=== PATIENT | male | born 1955 | race American Indian/Alaskan Native ===

== ENCOUNTER 2021-10-05 10:00 | Emergency (ER) | payer MEDICARE ==
--- NOTE | 2021-10-05 11:20 | Emergency Department Report ---
ED General Adult HPI - General Chief complaint: Urogenital-Male Stated complaint: I cannot urinate Time Seen by Provider: 10/05/21 10:28 Source: patient, RN notes reviewed Mode of arrival: Ambulatory Limitations: No Limitations - History of Present Illness Initial comments: Private neurologist: Dr. Yury Valentin; [facility] This patient is a pleasant 66-year-old gentleman, who presents to the ER today with a complaint of urinary retention. He reports a history of BPH. He believes he also has a history of hypertension. His symptoms are much improved with placement of a Begum catheter. He denies testicular pain, dyschezia, rectal pain, and phallus pain. He did present with suprapubic distention and fullness, and severe discomfort, i nability to urinate. No other complaints at this time. He called up his private urologist, and was informed that he would not be able to get an appointment for about 2 weeks. He therefore presented to the emergency room. -: hour(s) Location: abdomen Consistency: constant Improves with: other (Placement of a Begum catheter) Worsens with: other (Attempting to urinate) - Related Data Previous Rx's Medication Instructions Recorded Last Taken Type Tamsulosin [Flomax] 0.4 mg PO QHS #30 cap 10/05/21 Unknown Rx Allergies Allergy/AdvReac Type Severity Reaction Status Date / Time Penicillins Allergy Itching Verified 10/05/21 10:11 ED Review of Systems ROS: Stated complaint: BLADDER PAINFUL/HURT TO SIT Other details as noted in HPI Constitutional: denies: fever Eyes: denies: eye discharge Respiratory: denies: cough Cardiovascular: denies: chest pain Gastrointestinal: abdominal pain. denies: vomiting, diarrhea Genitourinary: as per HPI, other (Suprapubic fullness and inability to urine). denies: testicular pain, testicular mass Neurological: denies: weakness Psychiatric: anxiety ED Past Medical Hx - Medications Home Medications: Home Medications Medication Instructions Recorded Confirmed Last Taken Type Tamsulosin [Flomax] 0.4 mg PO QHS #30 cap 10/05/21 Unknown Rx ED Physical Exam - General Limitations: No Limitations General appearance: alert, anxious, in distress, obese - Head Head exam: Present: atraumatic, normocephalic - Eye Eye exam: Present: normal appearance, EOMI - ENT ENT exam: Present: normal exam, normal orophraynx, mucous membranes moist, normal external ear exam - Neck Neck exam: Present: normal inspection, full ROM. Absent: tenderness, meningismus - Respiratory Respiratory exam: Present: normal lung sounds bilaterally. Absent: respiratory distress, wheezes, rales, rhonchi, stridor, decreased breath sounds - Cardiovascular Cardiovascular Exam: Present: normal rhythm, tachycardia, normal heart sounds. Absent: bradycardia, irregular rhythm, systolic murmur, diastolic murmur, rubs, gallop - GI/Abdominal GI/Abdominal exam: Present: soft, distended, tenderness, other (There is suprapubic fullness and distention. Tenderness and distention resolved after placement of Begum catheter). Absent: guarding, rebound, rigid, pulsatile mass - Rectal Rectal exam: Present: deferred - Extremities Exam Extremities exam: Present: normal inspection, full ROM, other (2+ pulses noted in the bilateral upper and lower extremities. There is no palpable cord. negative Homans sign. Muscular compartments are soft. The pelvis is stable.). Absent: pedal edema, calf tenderness - Back Exam Back exam: Present: normal inspection, full ROM. Absent: tenderness, CVA tenderness (R), CVA tenderness (L), paraspinal tenderness, vertebral tenderness - Neurological Exam Neurological exam: Present: alert, oriented X3, normal gait, other (No facial droop. Tongue midline. Extraocular movements intact bilaterally. Facial sensation intact to light touch in V1, V2, V3 distribution bilaterally. 5 and a 5 strength in 4 extremities. Sensation intact to light touch in 4 extremities.). Absent: motor sensory deficit - Psychiatric Psychiatric exam: Present: anxious - Skin Skin exam: Present: warm, dry, intact, normal color. Absent: rash ED Course Vital Signs 10/05/21 10/05/21 10/05/21 10:12 10:52 12:11 Temperature 98.0 F Pulse Rate 110 H 89 Respiratory 20 20 Rate Blood Pressure 158/113 Blood Pressure 147/95 [Right] O2 Sat by Pulse 99 100 98 Oximetry - Reevaluation(s) Reevaluation #1: 10/05/21 12:07 Differential diagnosis, including but not limited to: Urinary retention, BPH, urinary tract infection Assessment and plan: 66-year-old gentleman, with resolved urinary retention, much improved after placement of a Begum catheter. Explained natural history of urinary retention to this patient, and need for discharge with Begum catheter, to leg bag, for outpatient trial of void. As a courtesy, I reached out to his private urologist, I discussed the case with Giselle, covering physician economic research assistant. She has taken the patient's information, and articulated to me that this patient will be contacted with an appointment from the office to follow-up in the next 1 to 2 weeks. I also discussed the natural history of urinary retention with patient, need to discharge with Begum catheter to leg bag, and recommendations to follow-up with urology for outpatient trial of void in 1 to 2 weeks. His urologist does recommend initiation of Flomax. He has a known history of BPH. Return precautions reviewed. All questions answered. 10/05/21 12:40 Tachycardia improved. Feels much improved. Begum catheter to leg bag. UA not consistent with UTI. Discharged with outpatient follow-up. ED Medical Decision Making - Lab Data Vital Signs 10/05/21 10/05/21 10:12 10:52 Temperature 98.0 F Pulse Rate 110 H Respiratory 20 Rate Blood Pressure 158/113 O2 Sat by Pulse 99 100 Oximetry Lab Results 10/05/21 Range/Units 11:23 Urine Color Straw (Yellow) Urine Turbidity Clear (Clear) Urine pH 6.0 (5.0-7.0) Ur Specific [place] 1.008 (1.003-1.030) Urine Protein <15 mg/dl (Negative) mg/dL Urine Glucose (UA) Neg (Negative) mg/dL Urine Ketones Neg (Negative) mg/dL Urine Blood Mod (Negative) Urine Nitrite Neg (Negative) Urine Bilirubin Neg (Negative) Urine Urobilinogen < 2.0 (<2.0) mg/dL Ur Leukocyte Esterase Neg (Negative) Urine WBC (Auto) 2.0 (0.0-6.0) /HPF Urine RBC (Auto) 41.0 (0.0-6.0) /HPF Urine Mucus Few /HPF Vital Signs 10/05/21 10/05/21 10/05/21 10:12 10:52 12:11 Temperature 98.0 F Pulse Rate 110 H 89 Respiratory 20 20 Rate Blood Pressure 158/113 Blood Pressure 147/95 [Right] O2 Sat by Pulse 99 100 98 Oximetry Critical care attestation.: If time is entered above; I have spent that time in minutes in the direct care of this critically ill patient, excluding procedure time. ED Disposition Clinical Impression: Urinary retention Disposition: 01 HOME / SELF CARE / HOMELESS Is pt being admited?: No Does the pt Need Aspirin: No Condition: Stable Instructions: Acute Urinary Retention, Male, [id number] Additional Instructions: Patient presented to the emergency room today and acute urinary retention, likely secondary to enlarged prostate gland. Recommend that patient keep the Begum catheter in bladder, attached to leg bag, and follow-up with your urologist in 1 to 2 weeks for repeat checkup and evaluation. The emergency room contacted your private urologist, and the urolog y group informed the emergency room that the patient should be contacted with an appointment to follow-up within the next 1 to 2 weeks. However, we do recommend that the patient also contact his urology office independently, to confirm outpatient follow-up appointment. Alternatively, the patient may follow-up with outpatient urology within the next 1 to 2 weeks, such as [facility]bi. Please continue current outpatient medications. [facility] Cultures were sent today, and results will be available in the next 3 to 5 days. Please have your primary care doctor contact the medical record department to obtain culture results. Flomax medication is recommended by your urologist to facilitate urination. This medication might cause dizziness and lightheadedness, so take it at night, before going to bed. Please return to the emergency room right away with new pain, worsened pain, migration of pain, projectile vomiting, change in mental status, confusion, inability tolerate liquid feeds, new, worsened or different symptoms not present on the initial emergency room evaluation Prescriptions: Tamsulosin [Flomax] 0.4 mg PO QHS #30 cap Referrals: KEIKO ACKERMAN [Provider Group] - 7-10 days Forms: Work/School Release Form(ED)
[2021-10-05 12:06] LABS: Bilirubin,Urine NEG (Negative); Blood,Urine MOD (Negative); Color,Urine Straw (Yellow); Mucus,Urine FEW /HPF; Protein,Urine <15 mg/dL mg/dL (Negative); Urobilinogen,Urine < 2.0 mg/dL (<2.0)
[2021-10-05 12:12] VITALS: BP 147/95
== END 2021-10-05 12:53 | disposition home or self-care (01) ==
LOC: ED 10:00
DX: R33.9 Retention of urine, unspecified (principal); Z88.0 Allergy status to penicillin; Z79.899 Other long term (current) drug therapy
CPT/HCPCS: 51702; 81001; 87086; 99283

== ENCOUNTER 2021-10-06 09:24 | Emergency (ER) | payer MEDICARE ==
[2021-10-06 10:20] VITALS: BP 138/88
[2021-10-06] MEDS ORDERED: WATER FOR IRRIG STERILE 250 ML BOTTLE IR ONE (13:12)
[2021-10-06] MEDS ORDERED: SODIUM CHLORIDE IRRI 500 ML 500 ML IR ONE (13:13)
[2021-10-06] MEDS ORDERED: SODIUM CHLORIDE 0.9% IRR 500 ML BOTTLE IR ONE (13:35)
--- NOTE | 2021-10-06 14:11 | Emergency Department Report ---
ED Male HPI - General Chief complaint: Urogenital-Male Stated complaint: CATHETER BLOCKAGE Time Seen by Provider: 10/06/21 10:54 Source: patient Mode of arrival: Ambulatory Limitations: No Limitations - History of Present Illness Initial comments: 66-year-old male with a past medical history of BPH, hypertension, elevated cholesterol presents to the hospital complaining of urine leaking around his Prather catheter and not entering the bag. Patient was here yesterday with acute urinary retention and had a Prather catheter placed for the first time. Patient also complains of stinging pain at the urethral meatus and irritation secondary to catheter. Patient currently denies fever, nausea, vomiting, or suprapubic abdominal pain. Patient does have a primary urologist with scheduled follow-up - Related Data Previous Rx's Medication Instructions Recorded Last Taken Type Tamsulosin [Flomax] 0.4 mg PO QHS #30 cap 10/05/21 Unknown Rx Allergies Allergy/AdvReac Type Severity Reaction Status Date / Time Penicillins Allergy Itching Verified 10/05/21 10:11 ED Review of Systems ROS: Stated complaint: CATHETER BLOCKAGE Other details as noted in HPI Comment: All other systems reviewed and negative ED Past Medical Hx - Past Medical History Hx Hypertension: Yes Additional medical history: elevated cholesterol - Surgical History Past Surgical History?: Yes Additional Surgical History: prostrate biopsy - Social History Smoking Status: Never Smoker Substance Use Type: None - Medications Home Medications: Home Medications Medication Instructions Recorded Confirmed Last Taken Type Tamsulosin [Flomax] 0.4 mg PO QHS #30 cap 10/05/21 Unknown Rx ED Physical Exam - General Limitations: No Limitations - Other Other exam information: General: No acute distress Head: Atraumatic Eyes: normal appearance ENT: Moist mucous membranes Neck: Normal appearance, no midline tenderness Chest: Clear to auscultation bilaterally CV: Regular rate and rhythm Abdomen: Soft, normal bowel sounds, nontender, nondistended, no rebound or guarding Prather catheter, mild blood at the meatus with dried blood on Prather. No gross hematuria. Clear urine in bag Back: Normal inspection Extremity: Normal inspection, full range of motion Neuro: Alert O x 3, no facial asymmetry, speech clear, no gross motor sensory deficit Psych: Appropriate behavior Skin: No rash ED Course Vital Signs 10/06/21 10:19 Temperature 98.4 F Pulse Rate 100 H Respiratory 18 Rate Blood Pressure 138/88 [Right] O2 Sat by Pulse 98 Oximetry - Reevaluation(s) Reevaluation #1: 10/06/21 14:06 hr 96 - Procedure Description Procedures done: Bedside ultrasound performed and did not show signs of urinary retention. Prather catheter balloon noted to be inflated in a nondistended bladder. Prather catheter was detached from bag and flushed with sterile normal saline. Saline advanced without difficulty and I was able to aspirate normal saline followed by patient relaxing and allowing saline to exit urine catheter. New leg bag was placed and patient was provided oral hydration. Patient was observed and had clear urine output continue Prather catheter without discomfort. No suprapubic distention or tenderness noted. Prather catheter adherent dressing was repositioned more proximal and medially so that it would cause less pulling and irritation at the urethral meatus. ED Medical Decision Making - Medical Decision Making prather obstruction with recent history of acute urinary retention secondary to BPH Prather catheter flush with improvement in obstruction Urine output noted in the bag prior to discharge Patient denied suprapubic abdominal pain or signs of urinary retention Patient is afebrile Patient has a appointment scheduled with his urologist for follow-up and was prescribed Flomax during ed visit yesterday Critical Care Time: No Critical care attestation.: If time is entered above; I have spent that time in minutes in the direct care of this critically ill patient, excluding procedure time. ED Disposition Clinical Impression: Obstructed Prather catheter Disposition: HOME / SELF CARE / HOMELESS Is pt being admited?: No Does the pt Need Aspirin: No Condition: Stable Instructions: Indwelling Urinary Catheter Care, Adult, [id number] Additional Instructions: Follow-up with your urologist. Return if symptoms worsen as indicated by your discharge instructions. Referrals: your, urologist [Other] - 3-5 Days Time of Disposition: 14:05
== END 2021-10-06 14:21 | disposition home or self-care (01) ==
LOC: ED 09:24
DX: Z46.6 Encounter for fitting and adjustment of urinary device (principal); I10 Essential (primary) hypertension
CPT/HCPCS: 99282; 99283

== ENCOUNTER 2022-02-14 22:17 | Emergency (ER) | payer MEDICARE ==
--- NOTE | 2022-02-15 00:45 | Emergency Department Report ---
ED Male HPI - General Chief complaint: Urogenital-Male Stated complaint: UNABLE TO URINATE Time Seen by Provider: 02/15/22 00:24 Source: patient Mode of arrival: Ambulatory Limitations: No Limitations - History of Present Illness Initial comments: 66 yo M who present with concern of not been able to urinate since about 13:30 PM yesterday afternoon. He has pre dental crown procedure treatment this morning by his dentist. He now reports lower mid abdominal discomfort. No fever or chills reported. Pt has history of BPH and have had urinary retention in the past about 4 months ago in November 2021. No other modifying or associated factors reported. - Related Data Previous Rx's Medication Instructions Recorded Last Taken Type Tamsulosin [Flomax] 0.4 mg PO QHS #30 cap 10/05/21 Unknown Rx Allergies Allergy/AdvReac Type Severity Reaction Status Date / Time Penicillins Allergy Itching Verified 10/05/21 10:11 ED Review of Systems ROS: Stated complaint: UNABLE TO URINATE Other details as noted in HPI Comment: All other systems reviewed and negative Genitourinary: other (unable to urinate ) ED Past Medical Hx - Past Medical History Hx Hypertension: Yes Additional medical history: elevated cholesterol - Surgical History Additional Surgical History: prostrate biopsy - Social History Smoking Status: Never Smoker Substance Use Type: None - Medications Home Medications: Home Medications Medication Instructions Recorded Confirmed Last Taken Type Tamsulosin [Flomax] 0.4 mg PO QHS #30 cap 10/05/21 Unknown Rx ED Physical Exam - General Limitations: No Limitations General appearance: alert, in distress (due to suprapubic pain ) - Head Head exam: Present: normal inspection - Eye Eye exam: Present: normal appearance Pupils: Present: normal accommodation - ENT ENT exam: Present: normal exam, normal orophraynx, mucous membranes moist - Neck Neck exam: Present: normal inspection, full ROM - Respiratory Respiratory exam: Present: normal lung sounds bilaterally. Absent: respiratory distress, accessory muscle use - Cardiovascular Cardiovascular Exam: Present: regular rate, normal rhythm, normal heart sounds - GI/Abdominal GI/Abdominal exam: Present: soft, tenderness (suprapubic tenderness ), normal bowel sounds. Absent: distended - Extremities Exam Extremities exam: Present: normal inspection, normal capillary refill. Absent: pedal edema - Back Exam Back exam: Absent: tenderness - Neurological Exam Neurological exam: Present: alert, oriented X3 - Psychiatric Psychiatric exam: Present: normal affect, normal mood - Skin Skin exam: Present: warm, normal color ED Course Vital Signs 02/14/22 22:37 Temperature 98.6 F Pulse Rate 107 H Respiratory 18 Rate Blood Pressure 153/99 O2 Sat by Pulse 99 Oximetry ED Medical Decision Making - Medical Decision Making unable to urinate -- unsure the course-- but his BPH could have contributed to this-- Prather Catheter place with instant relief and was able to return more than 1L urine output-- pt reassured and encourage to follow up with his Urologist in the next 2-3 days to have the prather removed. UA order to rule out any infectious process --noted to be unremarkable except blood-- without any urinary leukocytes or nitrites-- Critical care attestation.: If time is entered above; I have spent that time in minutes in the direct care of this critically ill patient, excluding procedure time. ED Disposition Clinical Impression: Acute urinary retention Disposition: 30 STILL A PATIENT Is pt being admited?: No Does the pt Need Aspirin: No Condition: Stable Instructions: Acute Urinary Retention, Male, [id number] Additional Instructions: It is very important that you call and follow-up with your primary doctor/urology in the next 2-3 days for reevaluation and possible removal of your Prather catheter Continue your Flomax as prescribed by your primary doctor Increase your daily fluid to help your hydration Please do not hesitate to call or return to the emergency if your symptoms worsen or recur Referrals: KRISH SERRANO MD [Primary Care Provider] - 3-5 Days Time of Disposition: 01:42
[2022-02-15 00:55] LABS: Bacteria,Urine 1+ /HPF (Negative); RBC,Urine < 1.0 /HPF (0.0-6.0)
[2022-02-15 00:58] LABS: Bilirubin,Urine Negative (Negative); Color,Urine Colorless (Yellow)
[2022-02-15 01:00] LABS: Blood,Urine Moderate (Negative); PH,Urine 7.5 (5.0-7.0); Protein,Urine <15 mg/dL mg/dL (Negative); Urobilinogen,Urine 0.2 mg/dL (<2.0); WBC,Urine < 1.0 /HPF (0.0-6.0)
[2022-02-15 03:45] VITALS: BP 145/85
== END 2022-02-15 03:46 | disposition still patient (30) ==
LOC: ED 22:17
DX: R33.9 Retention of urine, unspecified (principal); I10 Essential (primary) hypertension; Z88.0 Allergy status to penicillin
CPT/HCPCS: 51702; 81001; 99283